=== PATIENT | male | born 1940 | race Caucasian/White ===

== ENCOUNTER 2016-08-11 17:44 | Emergency (ER) | payer MEDICARE ==
[~2016-08-11] VITALS: Ht 177.8 cm; Wt 71.7 kg
--- NOTE | 2016-08-11 17:44 | NUR ---
LFA #18 , LHAND #20 AND RAC #18 IV ACCESS.
--- NOTE | 2016-08-11 17:44 | NUR ---
HIRA RA 102 FROM [facility], 45 MINUTE DOWN TIME, PEA,4 ROUNDS OF EPI AND 1 AMP BICARB GIVEN, BLOOD SUGAR 109. PLACED ON MONITOR. DR AZEVEDO AT BEDSIDE.
[2016-08-11] MEDS ORDERED: ETOMIDATE 2 MG/ML VIAL IV ONE (18:00)
[2016-08-11] MEDS ORDERED: EPINEPHRINE (1:1000) 1 MG in IV D5W 250 ML IV PRN (18:00)
[2016-08-11] MEDS ORDERED: ATROPINE SULFATE 1 MG/10 ML DISP.SYRIN IV ONE (18:00)
[2016-08-11] MEDS ORDERED: Calcium Chloride 13.6 MEQ/10ML VIAL IV ONE (18:00)
[2016-08-11] MEDS ORDERED: ROCURONIUM BROMIDE 100 MG/10 ML VIAL IV ONE (18:00)
[2016-08-11] MEDS ORDERED: IV NS 0.9% 1,000 ML BAG IV ONE (18:00)
[2016-08-11 18:05] VITALS: BP 197/78
--- NOTE | 2016-08-11 18:05 | NUR ---
PT INTUBATED BY JESÚS HUERTAS WITH 7.5 ET TUBE SECURED @ 22 CM LIPLINE CO2 DETECTOR CHANGED IN GOLD COLOR. BREATH SOUNDS CLEAR BILATERAL WITH SYMMETRICAL CHEST RISE. VENT SETTINGS BELLOW PER RT DRIVEN PROTOCOL: AC 20 VT 600 FIO2 100% PEEP +5 AMBU BAG @ BEDSIDE. Addendum: 08/11/16 at 1832 by ALFIE OSBORNE RT Amended: Links added.
--- NOTE | 2016-08-11 18:09 | NUR ---
CALLED NURSING SUP. FOR ICU BED
[2016-08-11] MEDS ORDERED: IV SET PRIMARY PUMP SET 1 EA INFUS.SET MC ONE ×2 (18:17→20:52)
--- NOTE | 2016-08-11 18:17 | NUR ---
CALLED [facility]S [facility] LINE, SPOKE WITH NICOLA, FAXED FACESHEET AND EKG TO [phone]
[2016-08-11] MEDS ORDERED: PROPOFOL 100 ML IV ONE (18:18)
[2016-08-11 18:20] LABS: BASOPHILS # (AUTO) 0.1 /CMM (0.0-0.2); BASOPHILS % (AUTO) 0.5 % (0.0-2.0); EOSINOPHILS % (AUTO) 0.1 % (0.0-6.0); HEMATOCRIT 43 % (39-51); HEMOGLOBIN 13.4 g/dL (13.5-17.5); LYMPHOCYTES # (AUTO) 5.6 /CMM (0.8-4.8); LYMPHOCYTES % (AUTO) 27.4 % (20.0-44.0); MEAN CORPUSCULAR HEMOGLOBIN 33 PG (26.0-33.0); MEAN CORPUSCULAR HGB CONC 32 g/dl (31.0-36.0); MEAN CORPUSCULAR VOLUME 105 fL (80-96); MONOCYTES % (AUTO) 4.9 % (2.0-12.0); NEUTROPHILS # (AUTO) 13.9 /CMM (1.8-8.9); NEUTROPHILS % (AUTO) 67.1 % (43.0-81.0); PLATELET COUNT (AUTO) 130 /CMM (150-450); RDW COEFFICIENT OF VARIATION 18.8 (11.5-15.0); RED BLOOD CELL COUNT(AUTO) 4.06 MIL/uL (4.5-6.0); WHITE BLOOD COUNT (AUTO) 20.6 K/uL (4.3-11.0)
--- NOTE | 2016-08-11 18:29 | NUR ---
AC 20 TD 600 FIO2 100 PEEP 5 MECH VENT
[2016-08-11] MEDS ORDERED: PROPOFOL 100 ML IV PRN (18:30)
[2016-08-11 18:34] LABS: TROPONIN I < 0.017 ng/mL (0.00-0.056)
--- NOTE | 2016-08-11 18:43 | NUR ---
PT NOT STABLE FOR CT SCAN. ER WILL CALL WHEN READY.
--- NOTE | 2016-08-11 18:45 | NUR ---
16FR F/C INSERTED PER MD ORDER. URINE COLLECTED. CALLED LAB FOR NETWORKER.
--- NOTE | 2016-08-11 18:47 | NUR ---
PAGED FIGHT MANAGER SUPERINTENDENT OVERHEAD DISTRIBUTION, FIGHT MANAGER
[2016-08-11 18:53] LABS: INR 2.87 (0.87-1.13); PROTHROMBIN TIME 31.5 SECS (9.5-12.7)
[2016-08-11 18:58] LABS: ALANINE AMINOTRANSFERASE 235 U/L (12-78); ALBUMIN 2.3 g/dL (3.4-5.0); ASPARTATE AMINOTRANSFERASE 459 U/L (15-37); BILIRUBIN,TOTAL 2.2 mg/dL (0.2-1.0); CARBON DIOXIDE 29 mmol/L (21-32); CHLORIDE 101 mmol/L (98-107); GLUCOSE 75 mg/dL (74-106); SODIUM SERUM 133 mmol/L (136-145); TOTAL PROTEIN, SERUM 6.5 g/dL (6.4-8.2); UREA NITROGEN, BLOOD 51 mg/dL (7-18)
[2016-08-11 18:58] LABS: APPEARANCE,URINE Clear (CLEAR); BILIRUBIN,URINE SMALL (NEGATIVE); BLOOD, URINE Moderate Ery/uL (NEGATIVE); COLOR,URINE Yellow (YELLOW); KETONES,URINE Negative (NEGATIVE); LEUKOCYTE ESTERASE ,URINE Large (NEGATIVE); NITRITE, URINE Negative (NEGATIVE); PH,URINE 5.5 (5.0-8.0); PROTEIN,URINE 100 mg/dl (NEGATIVE); UGLUCOSE Negative (NEGATIVE); UROBILINOGEN,URINE >=8.0 EU/dL (0.2)
[2016-08-11] MEDS ORDERED: DOPAMINE IV ONE (19:00)
--- NOTE | 2016-08-11 19:03 | NUR ---
XRAY AT BEDSIDE
[2016-08-11 19:06] LABS: THYROID STIMULATING HORMONE 20.694 uIU/mL (0.358-3.74)
--- NOTE | 2016-08-11 19:08 | NUR ---
CALLED [facility], SPOKE WITH LEONORA, PRESENTED PT, TRANFERRED CALL TO
[2016-08-11 19:17] LABS: POTASSIUM 7.6 mmol/L (3.5-5.1)
[2016-08-11 19:18] LABS: ALKALINE PHOSPHATASE 193 U/L (46-116)
--- NOTE | 2016-08-11 19:18 | NUR ---
CALLED [facility], SPOKE WITH CHARGE NURSE DELFINA, FAXED FACESHEET AND EKG TO [phone]
--- NOTE | 2016-08-11 19:36 | NUR ---
CALLED [facility] AT [phone], SPOKE WITH HARLEY, WILL FAX FACESHEET AND PT RESULTS TO [phone]
[2016-08-11 19:39] VITALS: BP 147/98
--- NOTE | 2016-08-11 19:48 | NUR ---
INFORMED DR. AZEVEDO PT BP 171/95 HR 70. AT BEDSIDE FOR EVAL. PER MD TO HOLD ON EPI DRIP AT THIS TIME.
--- NOTE | 2016-08-11 19:52 | NUR ---
REPORT GIVEN YUSUF CUELLAR FOR SCARLET
[2016-08-11 20:00] LABS: ALBUMIN 2.4 g/dL (3.4-5.0); BILIRUBIN,DIRECT 1.4 mg/dL (0.0-0.2); BILIRUBIN,TOTAL 2.7 mg/dL (0.2-1.0); CALCIUM, SERUM 9.1 mg/dL (8.5-10.1); TOTAL PROTEIN, SERUM 6.7 g/dL (6.4-8.2)
[2016-08-11] MEDS ORDERED: SODIUM BICARBONATE SYR 50 MEQ/50 ML DISP.SYRIN IV ONE (20:00)
[2016-08-11] MEDS ORDERED: DEXTROSE 50%-WATER 50 ML DISP.SYRIN IVP ONE (20:00)
[2016-08-11] MEDS ORDERED: INSULIN REGULAR, HUMAN 100 UNIT/ML 10 ML VIAL IV ONE (20:00)
[2016-08-11] MEDS ORDERED: FUROSEMIDE 40 MG/4 ML VIAL IV ONE (20:00)
[2016-08-11] MEDS ORDERED: SODIUM POLYSTYRENE SULFONATE 15 G/60 ML BOTTLE GT ONE (20:00)
[2016-08-11 20:02] LABS: POTASSIUM 7.7 mmol/L (3.5-5.1)
[2016-08-11] MEDS ORDERED: FUROSEMIDE 40 MG/4 ML VIAL ONE ×2 (20:07→23:42)
[2016-08-11] MEDS ORDERED: DEXTROSE 50%-WATER 50 ML DISP.SYRIN ONE ×2 (20:07→23:42)
[2016-08-11] MEDS ORDERED: SODIUM POLYSTYRENE SULFONATE 15 G/60 ML BOTTLE ONE ×2 (20:07→21:42)
[2016-08-11] MEDS ORDERED: SODIUM BICARBONATE SYR 50 MEQ/50 ML DISP.SYRIN ONE ×2 (20:08→23:42)
[2016-08-11] MEDS ORDERED: INSULIN REGULAR, HUMAN 100 UNIT/ML 10 ML VIAL ONE ×2 (20:08→23:41)
--- NOTE | 2016-08-11 20:15 | NUR ---
CALLED ([facility]), , TRANSFERRED CALL TO
[2016-08-11 20:18] LABS: BACTERIA,URINE Moderate /HPF (None Seen); SQUAMOUS EPITHELIAL CELL,UR Few /HPF (None Seen); WBC,URINE 21-50 /HPF (0-3)
--- NOTE | 2016-08-11 20:18 | NUR ---
VERIFIED INUSLIN 10 UNITS WITH ALISA
--- NOTE | 2016-08-11 20:24 | NUR ---
RECEIVED VERBAL ORDER FROM DR AZEVEDO TO PUT CXR FOR NGT PLACEMENT
[2016-08-11 20:27] LABS: ABG BASE EXCESS -1.2 mmol/L; ABG OXYGEN SATURATION 91.6 % (92.0-98.5); ABG PH 7.397 (7.350-7.450); ABG PO2 62.7 mmHg (75.0-100.0); AaDO2 611.3 mmHg; COHb 1.2 % (0.5-1.5); MetHb 0.3 % (0.0-1.5); O2Hb 90.2 % (94.0-97.0); PEEP,BG 5 cm H2O; SITE, ABG Right Radial; VT, ABG 600 mL
--- NOTE | 2016-08-11 20:27 | NUR ---
RECEIVED CALL FROM HARLEY AT [facility], SHE SAID SHE PAGED THEIR INDUSTRIAL RELATIONS ANALYST AND HE WILL CALL US BACK, .
--- NOTE | 2016-08-11 20:27 | NUR ---
DR. AZEVEDO AT BEDSIDE FOR REEVAL.
[2016-08-11] MEDS ORDERED: IV D5W 50 ML IV ONE (20:51)
[2016-08-11] MEDS ORDERED: CEFTRIAXONE 1 G VIAL ONE (20:51)
--- NOTE | 2016-08-11 20:55 | NUR ---
XRAY AT BEDSIDE FOR CHEST XRAY FOR NGT PLACEMENT
[2016-08-11] MEDS ORDERED: CEFTRIAXONE 1GM BAG (ER ONLY) 1 GM/50 ML PIGGYBACK IV ONE (21:00)
--- NOTE | 2016-08-11 21:04 | NUR ---
CALLED AT [phone], LEFT MESSAGE ON VOICEMAIL
[2016-08-11 21:12] VITALS: BP 134/80
--- NOTE | 2016-08-11 21:13 | NUR ---
ON PHONE WITH
--- NOTE | 2016-08-11 21:15 | NUR ---
PT ACCEPTED TO [facility] , GOING TO ROOM [place] [address], NUMBER FOR REPORT IS [phone]
--- NOTE | 2016-08-11 21:30 | NUR ---
CALLED [facility] FOR TRANSPORT TO [facility], ETA 2 HOURS
--- NOTE | 2016-08-11 22:06 | NUR ---
PT TO CT.
--- NOTE | 2016-08-11 22:20 | NUR ---
PT RETURNED FROM CT.
[2016-08-11 22:23] LABS: CREATININE 1.9 mg/dL (0.6-1.3)
[2016-08-11 22:33] LABS: POTASSIUM 6.9 mmol/L (3.5-5.1)
--- NOTE | 2016-08-11 22:45 | NUR ---
CALLED DR. MILLER AT [phone], LEFT MESSAGE ON HIS VOICEMAIL
[2016-08-11] MEDS ORDERED: PROTHROMBIN COMPLEX CONCENTR 500 UNIT VIAL IV ONE (23:00)
--- NOTE | 2016-08-11 23:07 | NUR ---
PROTHROMBIN 500UNIT VIAL NOT AVAILABLE IN ER/ RN SUP PYXIS. DR. AZEVEDO AWARE. SEC[employer] PRINCIPAL PHARMACIST PAGED.
[2016-08-11 23:32] VITALS: BP 166/54
--- NOTE | 2016-08-11 23:37 | NUR ---
REPORT GIVEN TO DONNA BIRCH FOR CONTINUATION OF CARE.
[2016-08-11] MEDS ORDERED: CALCIUM CHLORIDE 1,000 MG/10 ML DISP.SYRIN ONE (23:50)
[2016-08-11 23:59] VITALS: BP 156/80
[2016-08-12] MEDS ORDERED: SODIUM BICARBONATE SYR 50 MEQ/50 ML DISP.SYRIN IV ONE
[2016-08-12] MEDS ORDERED: DEXTROSE 50%-WATER 50 ML DISP.SYRIN IVP ONE
[2016-08-12] MEDS ORDERED: INSULIN REGULAR, HUMAN 100 UNIT/ML 10 ML VIAL IV ONE
[2016-08-12] MEDS ORDERED: Calcium Chloride 13.6 MEQ/10ML VIAL IV ONE
--- NOTE | 2016-08-12 00:25 | NUR ---
REPORT GIVEN TO CCT QUETA ROBERTS FROM MED RESPONSE BY QUETA JARRETT. IV'S INTACT AND PATENT. NO S/S INFECTION OR INFILTRATION. PT OBTUNDED. PT CONNECTED TO [facility] VENT WITH PRESCRIBED SETTINGS. PT TRANSFER[facility] TO [place] [facility]
[2016-08-14] MEDS ORDERED: EPINEPHRINE (1:10,000) SYRINGE 1 MG/10 ML DISP.SYRIN IVP ONE (16:02)
== END 2016-08-12 00:31 | disposition short-term general hospital (02) ==
LOC: ER 17:45
DX: I46.9 Cardiac arrest, cause unspecified (principal); I60.9 Nontraumatic subarachnoid hemorrhage, unspecified; K72.00 Acute and subacute hepatic failure without coma; R41.82 Altered mental status, unspecified; N28.9 Disorder of kidney and ureter, unspecified; N39.0 Urinary tract infection, site not specified; E87.5 Hyperkalemia; R74.0 Nonspecific elevation of levels of transaminase and lactic acid dehydrogenase [LDH]; I48.91 Unspecified atrial fibrillation; I50.9 Heart failure, unspecified; J44.9 Chronic obstructive pulmonary disease, unspecified; K21.9 Gastro-esophageal reflux disease without esophagitis; G93.40 Encephalopathy, unspecified; Z95.1 Presence of aortocoronary bypass graft
CPT/HCPCS: 36415; 36600; 70450-TC; 71010-TC; 80048-TC; 80076-TC; 81000-TC; 82803-TC; 82962-TC; 83605-TC; 84443-TC; 84484-TC; 85025-TC; 85730-TC; 86850-TC; 87040-TC; 87086-TC; 87186-TC; 99082-TC; A4606; C9132; J0171; J0461; J0696; J1265; J1815; J1940; J3490; J7060; Z7610